=== PATIENT | male | born 1975 | race Caucasian/White ===

== ENCOUNTER 2019-12-26 17:51 | Emergency (ER) | payer SELFPAY ==
[~2019-12-26] VITALS: Ht 190.5 cm; Wt 145.1 kg
[2019-12-26 17:54] VITALS: BP 163/91
--- NOTE | 2019-12-26 18:01 | NUR ---
PATIENT AMBULATED TO [facility]
--- NOTE | 2019-12-26 18:09 | NUR ---
C/O RIGHT SHOULDER PAIN X TODAY. DENIES TRAUMA. MED HX: DENIES. PATIENT STATES PAIN OF 7/10 AT THIS TIME.
--- NOTE | 2019-12-26 18:12 | NUR ---
Rachna arroyo in ED - 12/26/19 at 1812 by [facility] Patient being evaluated by ALISON RUIZ at bedside.
--- NOTE | 2019-12-26 18:13 | NUR ---
Patient being evaluated by ALISON RUIZ
--- NOTE | 2019-12-26 18:56 | NUR ---
APPLIED SLING TO RIGHT SHOULDER WITHOUT ANY ISSUES
== END 2019-12-26 19:08 | disposition home or self-care (01) ==
LOC: MED 17:51
DX: S43.491A Other sprain of right shoulder joint, initial encounter (principal); X58.XXXA Exposure to other specified factors, initial encounter; Y93.89 Activity, other specified; Y92.89 Other specified places as the place of occurrence of the external cause; Y99.8 Other external cause status
CPT/HCPCS: 73030; 93005; 99283

== ENCOUNTER 2022-02-28 02:00 | Emergency (ER) | payer MEDICAID ==
[~2022-02-28] VITALS: Ht 190.5 cm; Wt 154.2 kg
[2022-02-28 02:05] VITALS: BP 130/86
--- NOTE | 2022-02-28 02:10 | NUR ---
Patient ambulated to bed 8.
--- NOTE | 2022-02-28 02:15 | NUR ---
46/M BIB SELF C/C LLE PAIN [id number]. PER PATIENT PAIN IS 8/10 AND "FEELS LIKE PRESSURE AND CRAMPING" PER PATIENT HES FELT PAIN LIKE THIS BEFORE AND HAS A HX OF BLOOD CLOT. PATIENT LEG IS COOL TO TOUCH, DOENSNT APPEAR TO BE RED, SWOLLEN. PATIENT STATED DENIES CP/SOB/V/N/C/D AT THIS TIME. PATIENT IN GOWN AND MONITOR. BED LOW AND LOCKED. SIDE RAIL UP FOR SAFETY. ALL NEEDS MET. PMHX DM, HERNIA, GALLBLADDER SX, BLOT CLOT (X1YR AGO) MEDS METFORMIN NKA
--- NOTE | 2022-02-28 02:55 | NUR ---
Dr. Ng examining patient.
--- NOTE | 2022-02-28 04:00 | NUR ---
US AT BEDSIDE
[2022-02-28 04:20] VITALS: BP 115/67
--- NOTE | 2022-02-28 05:05 | NUR ---
Patient discharged with v/s stable BY MD PENA. Written and verbal after care instructions given and explained BY MD PENA. Patient verbalized understanding. Ambulatory with steady gait. All questions addressed prior to discharge BY MD PENA. Advised to follow up with PMD.
--- NOTE | 2022-02-28 05:05 | NUR ---
The patient's care was reviewed and supervised by Kathryn Andre RN.
== END 2022-02-28 05:05 | disposition home or self-care (01) ==
LOC: MED 02:00
DX: S93.602A Unspecified sprain of left foot, initial encounter (principal); R25.2 Cramp and spasm; E11.9 Type 2 diabetes mellitus without complications; I10 Essential (primary) hypertension; F17.210 Nicotine dependence, cigarettes, uncomplicated; Z90.49 Acquired absence of other specified parts of digestive tract; Z71.6 Tobacco abuse counseling; X58.XXXA Exposure to other specified factors, initial encounter; Y93.89 Activity, other specified; Y92.89 Other specified places as the place of occurrence of the external cause; Y99.8 Other external cause status
CPT/HCPCS: 93971; 99284; Q0092